=== PATIENT | female | born 1995 | race Two or more races ===

== ENCOUNTER 2023-10-20 15:46 | Emergency (ER) | payer MEDICAID, SELFPAY ==
[2023-10-20] VITALS (7 sets, daily range): BP systolic 114–123; BP diastolic 58–79; PULSE 52–68; TEMP 36.5; O2SAT 100; BMI 34.7
--- NOTE | 2023-10-20 16:04 | ED_ITS ---
Documented by User: AMINATA Berger 10/20/23 18:21 HPI HPI - General Adult General Chief complaint: Nausea/Vomiting/Diarrhea Stated complaint: Nausea/Vomiting, Blood in Stool Time Seen by Provider: 10/20/23 15:56 Source: patient and family Mode of arrival: Wheelchair Limitations: no limitations History of Present Illness HPI narrative: Patient is a 28-year-old female who presents to the emergency department for multiple episodes of emesis since early this morning As well as diffuse low abdominal pain. Patient reports 3 previous C-sections as well as previous cholecystectomy last year. She denies any complications from the gallbladder surgery. She has had no fevers or upper respiratory symptoms. She denies urinary symptoms. She apparently was waiting to be seen at [facility]'s emergency department but felt the wait was too long so her family drove her here. Related Data Previous Rx's ?Medication ?Instructions ?Recorded ondansetron 4 mg disintegrating 4 mg PO Q6H PRN nausea and 10/20/23 tablet vomiting #12 tabs pantoprazole 40 mg tablet,delayed 40 mg PO DAILY #7 tabs 10/20/23 release (Protonix) Allergies Allergy/AdvReac Type Severity Reaction Status Date / Time No Known Drug Allergies Allergy Verified 10/20/23 15:50 Opioid HPI Opioid Management Most Recent Opioid Data: Ur Phencyclidine Scrn Negative (NEGATIVE) 10/20/23 16:13 Review of Systems ROS Constitutional Denies: fever or chills Ears, nose, mouth, and throat Denies: throat pain or nasal congestion Respiratory Denies: shortness of breath Gastrointestinal Reports: abdominal pain, nausea and vomiting; Denies: diarrhea Genitourinary Denies: painful urination Musculoskeletal Denies: back pain Exam Constitutional Vital Signs, click to edit/add: Last Vital Signs Temp 97.7 F 10/20/23 15:50 Pulse 55 L 10/20/23 16:20 Resp 20 10/20/23 16:20 BP 123/58 10/20/23 16:02 Pulse Ox 100 10/20/23 15:51 O2 Del Method Room Air 10/20/23 15:50 Course Vital Signs Vital signs: Vital Signs Blood Pressure 118/79 10/20/23 15:48 Temperature 97.7 F 10/20/23 15:50 Pulse Rate 55 L 06/28/24 16:20 Respiratory Rate 20 10/20/23 16:20 Blood Pressure 123/58 10/20/23 16:02 Pulse Oximetry 100 10/20/23 15:51 Oxygen Delivery Method Room Air 10/20/23 15:50 Medical Decision Making MDM Narrative Medical decision making narrative: Patient treated with IV fluids, Pepcid, Zofran. Abdomen is soft and benign in the ER. Vital signs are within normal limits. Patient sent for CT of the abdomen and pelvis with IV contrast, her labs do not show any significant acute abnormalities. She was found to have no acute abnormality in the pelvis or abdomen on CT scanning, fatty liver noted Patient was also found to have positive cannabinoids on her urine specimen, suspect cyclic vomiting may play a role in her symptoms today. She was encouraged to be cautious of using marijuana for this reason. She will be placed on Protonix and Zofran for home. Follow-up with PCP and return to the ER if symptoms change or worsen Medical Records Medical records reviewed: Yes I reviewed the patient's medical records Lab Data Lab results reviewed: Yes I reviewed the patient's lab results Labs: Lab Results 10/20/23 10/20/23 Range/Units 16:13 16:22 WBC 10.9 (4.0-11.0) 10^3/uL RBC 4.41 (4.20-5.40) 10^6/uL Hgb 13.9 (12.0-16.0) g/dL Hct 41.5 (36.0-48.0) % MCV 94.1 (81.0-99.0) fL MCH 31.5 (26.7-34.0) pg MCHC 33.5 (29.9-35.2) g/dL RDW 12.9 (11.0-15.0) % Plt Count 247 (150-450) 10^3/uL MPV 11.2 (9.5-13.5) fL Neut % (Auto) 89.8 H (43.0-75.0) % Lymph % (Auto) 8.4 L (20.5-60.0) % [place] % (Auto) 1.2 L (1.7-12.0) % Eos % (Auto) 0.1 L (0.9-7.0) % Baso % (Auto) 0.2 (0.2-2.0) % Neut # (Auto) 9.8 H (1.4-6.5) 10^3/uL Lymph # (Auto) 0.9 L (1.2-3.8) 10^3/uL [place] # (Auto) 0.1 L (0.3-0.8) 10^3/uL Eos # (Auto) 0.0 (0.0-0.7) 10^3/uL Baso # (Auto) 0.0 (0.0-0.1) 10^3/uL Abs Immat Gran (auto) 0.03 (0.00-0.03) 10^3/uL Imm/Tot Granulo (auto) 0.3 (0.0-0.5) % Sodium 142 (136-145) mmol/L Potassium 3.4 L (3.5-5.1) mmol/L Chloride 105 (98-107) mmol/L Carbon Dioxide 21.7 (21.0-32.0) mmol/L Anion Gap 18.7 BUN 10.0 (7.0-18.0) mg/dL Creatinine 0.99 (0.55-1.02) mg/dL Est GFR ( Amer) >60 (>=60) Est GFR (Non-Af Amer) >60 (>=60) BUN/Creatinine Ratio 10.1 Glucose 145 H (74-106) mg/dL Lactate 2.7 H* (0.4-2.0) mmol/L Calcium 9.3 (8.5-10.1) mg/dL Total Bilirubin 0.4 (0.2-1.0) mg/dL AST 36 (15-37) U/L ALT 71 H (14-59) U/L Alkaline Phosphatase 63 (46-116) U/L Total Protein 8.7 H (6.4-8.2) g/dL Albumin 4.5 (3.4-5.0) g/dL Globulin 4.2 g/dL Albumin/Globulin Ratio 1.1 Lipase 25.0 (16.0-77.0) U/L Serum HCG, Qual Negative (NEGATIVE) Urine Color Yellow (YELLOW) Urine Clarity Clear (CLEAR) Urine pH >=9.0 A (5.0-9.0) Ur Specific [place] 1.010 (1.005-1.025) Urine Protein 30 A (NEG/TRACE) mg/dL Urine Glucose (UA) Negative (NEGATIVE) mg/dL Urine Ketones 15 A (NEGATIVE) mg/dL Urine Occult Blood Negative (NEGATIVE) Urine Nitrite Negative (NEGATIVE) Urine Bilirubin Negative (NEGATIVE) Urine Urobilinogen 0.2 (0.2-1.0) EU/dL Ur Leukocyte Esterase Negative (NEGATIVE) Urine RBC 0-2 (0-2) #/HPF Urine WBC 0-2 A (NONE SEEN) #/HPF Ur Squamous Epith Cells Many A (NONE/RARE) #/LPF Urine Crystals None seen (None Seen) #/HPF Urine Bacteria Moderate A (NONE SEEN) #/HPF Urine Casts None seen (NONE SEEN) #/LPF Urine Mucus Large A (NONE SEEN) Ur Culture Indicated? Yes Urine Opiates Screen Negative (NEGATIVE) Ur Buprenorphine Scrn Negative (NEGATIVE) Ur Oxycodone Screen Negative (NEGATIVE) Urine Methadone Screen Negative (NEGATIVE) Ur Barbiturates Screen Negative (NEGATIVE) U Tricyclic Antidepress Negative (NEGATIVE) Ur Phencyclidine Scrn Negative (NEGATIVE) Ur Amphetamines Screen Negative (NEGATIVE) U Methamphetamines Scrn Negative (NEGATIVE) U Benzodiazepines Scrn Negative (NEGATIVE) Urine Cocaine Screen Negative (NEGATIVE) U Cannabinoids Screen Positive A (NEGATIVE) Imaging Data CT scan - abdomen: Attestation: I have reviewed the pertinent imaging results. Radiologist's impression: ITS Impressions Abdomen/Pelvis CT 10/20/23 16:25 IMPRESSION: 1. No acute findings in the abdomen or pelvis. 2. Post cholecystectomy. 3. Mild hepatic steatosis. Electronically authenticated by: EMANUEL LOREDO Date: 10/20/2023 18:02 ECG Data Attestation: I personally reviewed and interpreted this ECG as follows: (Normal sinus rhythm at a rate of 61, no acute ST elevation or ectopy. EKG reviewed by attending physician) Discharge Plan Discharge Stand Alone Forms: Portal Instructions Chief Complaint: Nausea/Vomiting/Diarrhea Clinical Impression: Nausea and vomiting Patient Disposition: Home, Self-Care Time of Disposition Decision: 18:19 Condition: Good Prescriptions / Home Meds: New pantoprazole [Protonix] 40 mg tablet,delayed release (DR/EC) 40 mg PO DAILY Qty: 7 0RF ondansetron 4 mg tablet,disintegrating 4 mg PO Q6H PRN (Reason: nausea and vomiting) Qty: 12 0RF Print Language: Bhutanese Instructions: Acute Nausea and Vomiting (ED) Referrals: Physician,Non-Staff, [Primary Care Provider] - 1 week Discharge Date/Time: 10/20/23 18:38 Documented by User: Christian Sanchez MD 10/20/23 20:58 HPI HPI - General Adult General Chief complaint: Nausea/Vomiting/Diarrhea Stated complaint: Nausea/Vomiting, Blood in Stool Time Seen by Provider: 10/20/23 15:56 Related Data Previous Rx's ?Medication ?Instructions ?Recorded ondansetron 4 mg disintegrating 4 mg PO Q6H PRN nausea and 10/20/23 tablet vomiting #12 tabs pantoprazole 40 mg tablet,delayed 40 mg PO DAILY #7 tabs 10/20/23 release (Protonix) Allergies Allergy/AdvReac Type Severity Reaction Status Date / Time No Known Drug Allergies Allergy Verified 10/20/23 15:50 Opioid HPI Opioid Management Most Recent Opioid Data: Ur Phencyclidine Scrn Negative (NEGATIVE) 10/20/23 16:13 Exam Constitutional Vital Signs, click to edit/add: Last Vital Signs Temp 97.7 F 10/20/23 15:50 Pulse 55 L 10/20/23 16:20 Resp 20 10/20/23 16:20 BP 123/58 10/20/23 16:02 Pulse Ox 100 10/20/23 15:51 O2 Del Method Room Air 10/20/23 15:50 Course Vital Signs Vital signs: Vital Signs Blood Pressure 118/79 10/20/23 15:48 Temperature 97.7 F 10/20/23 15:50 Pulse Rate 55 L 10/20/23 16:20 Respiratory Rate 20 10/20/23 16:20 Blood Pressure 123/58 10/20/23 16:02 Pulse Oximetry 100 10/20/23 15:51 Oxygen Delivery Method Room Air 10/20/23 15:50 Medical Decision Making MDM Narrative Medical decision making narrative: Patient treated with IV fluids, Pepcid, Zofran. Abdomen is soft and benign in the ER. Vital signs are within normal limits. Patient sent for CT of the abdomen and pelvis with IV contrast, her labs do not show any significant acute abnormalities. She was found to have no acute abnormality in the pelvis or abdomen on CT scanning, fatty liver noted Patient was also found to have positive cannabinoids on her urine specimen, suspect cyclic vomiting may play a role in her symptoms today. She was encouraged to be cautious of using marijuana for this reason. She will be pl aced on Protonix and Zofran for home. Follow-up with PCP and return to the ER if symptoms change or worsen I, Dr Sanchez, have reviewed the above progress note and course of action in the ER; agree with the above. I have personally seen and evaluated this patient, gone over history and physical, and discussed disposition and treatment plan with the patient. Reexamination patient's abdomen is soft, minimal diffuse tenderness, no guarding, rebound, rigidity. No peritoneal signs. No surgical abdomen. Lab Data Labs: Lab Results 10/20/23 10/20/23 Range/Units 16:13 16:22 WBC 10.9 (4.0-11.0) 10^3/uL RBC 4.41 (4.20-5.40) 10^6/uL Hgb 13.9 (12.0-16.0) g/dL Hct 41.5 (36.0-48.0) % MCV 94.1 (81.0-99.0) fL MCH 31.5 (26.7-34.0) pg MCHC 33.5 (29.9-35.2) g/dL RDW 12.9 (11.0-15.0) % Plt Count 247 (150-450) 10^3/uL MPV 11.2 (9.5-13.5) fL Neut % (Auto) 89.8 H (43.0-75.0) % Lymph % (Auto) 8.4 L (20.5-60.0) % [place] % (Auto) 1.2 L (1.7-12.0) % Eos % (Auto) 0.1 L (0.9-7.0) % Baso % (Auto) 0.2 (0.2-2.0) % Neut # (Auto) 9.8 H (1.4-6.5) 10^3/uL Lymph # (Auto) 0.9 L (1.2-3.8) 10^3/uL [place] # (Auto) 0.1 L (0.3-0.8) 10^3/uL Eos # (Auto) 0.0 (0.0-0.7) 10^3/uL Baso # (Auto) 0.0 (0.0-0.1) 10^3/uL Abs Immat Gran (auto) 0.03 (0.00-0.03) 10^3/uL Imm/Tot Granulo (auto) 0.3 (0.0-0.5) % Sodium 142 (136-145) mmol/L Potassium 3.4 L (3.5-5.1) mmol/L Chloride 105 (98-107) mmol/L Carbon Dioxide 21.7 (21.0-32.0) mmol/L Anion Gap 18.7 BUN 10.0 (7.0-18.0) mg/dL Creatinine 0.99 (0.55-1.02) mg/dL Est GFR ( Amer) >60 (>=60) Est GFR (Non-Af Amer) >60 (>=60) BUN/Creatinine Ratio 10.1 Glucose 145 H (74-106) mg/dL Lactate 2.7 H* (0.4-2.0) mmol/L Calcium 9.3 (8.5-10.1) mg/dL Total Bilirubin 0.4 (0.2-1.0) mg/dL AST 36 (15-37) U/L ALT 71 H (14-59) U/L Alkaline Phosphatase 63 (46-116) U/L Total Protein 8.7 H (6.4-8.2) g/dL Albumin 4.5 (3.4-5.0) g/dL Globulin 4.2 g/dL Albumin/Globulin Ratio 1.1 Lipase 25.0 (16.0-77.0) U/L Serum HCG, Qual Negative (NEGATIVE) Urine Color Yellow (YELLOW) Urine Clarity Clear (CLEAR) Urine pH >=9.0 A (5.0-9.0) Ur Specific [place] 1.010 (1.005-1.025) Urine Protein 30 A (NEG/TRACE) mg/dL Urine Glucose (UA) Negative (NEGATIVE) mg/dL Urine Ketones 15 A (NEGATIVE) mg/dL Urine Occult Blood Negative (NEGATIVE) Urine Nitrite Negative (NEGATIVE) Urine Bilirubin Negative (NEGATIVE) Urine Urobilinogen 0.2 (0.2-1.0) EU/dL Ur Leukocyte Esterase Negative (NEGATIVE) Urine RBC 0-2 (0-2) #/HPF Urine WBC 0-2 A (NONE SEEN) #/HPF Ur Squamous Epith Cells Many A (NONE/RARE) #/LPF Urine Crystals None seen (None Seen) #/HPF Urine Bacteria Moderate A (NONE SEEN) #/HPF Urine Casts None seen (NONE SEEN) #/LPF Urine Mucus Large A (NONE SEEN) Ur Culture Indicated? Yes Urine Opiates Screen Negative (NEGATIVE) Ur Buprenorphine Scrn Negative (NEGATIVE) Ur Oxycodone Screen Negative (NEGATIVE) Urine Methadone Screen Negative (NEGATIVE) Ur Barbiturates Screen Negative (NEGATIVE) U Tricyclic Antidepress Negative (NEGATIVE) Ur Phencyclidine Scrn Negative (NEGATIVE) Ur Amphetamines Screen Negative (NEGATIVE) U Methamphetamines Scrn Negative (NEGATIVE) U Benzodiazepines Scrn Negative (NEGATIVE) Urine Cocaine Screen Negative (NEGATIVE) U Cannabinoids Screen Positive A (NEGATIVE) Imaging Data CT scan - abdomen: Radiologist's impression: ITS Impressions Abdomen/Pelvis CT 10/20/23 16:25 IMPRESSION: 1. No acute findings in the abdomen or pelvis. 2. Post cholecystectomy. 3. Mild hepatic steatosis. Electronically authenticated by: EMANUEL LOREDO Date: 10/20/2023 18:02 Discharge Plan Discharge Stand Alone Forms: Portal Instructions Chief Complaint: Nausea/Vomiting/Diarrhea Clinical Impression: Nausea and vomiting Patient Disposition: Home, Self-Care Time of Disposition Decision: 18:19 Condition: Good Prescriptions / Home Meds: New pantoprazole [Protonix] 40 mg tablet,delayed release (DR/EC) 40 mg PO DAILY Qty: 7 0RF ondansetron 4 mg tablet,disintegrating 4 mg PO Q6H PRN (Reason: nausea and vomiting) Qty: 12 0RF Print Language: Bhutanese Instructions: Acute Nausea and Vomiting (ED) Referrals: Physician,Non-Staff, MD [Primary Care Provider] - 1 week Discharge Date/Time: 10/20/23 18:38
[2023-10-20] MEDS: 0.9 % SODIUM CHLORIDE 1,000 ML 999 ML IV (16:17)
[2023-10-20] MEDS: ONDANSETRON PF 4 MG/2 ML VIAL IV (16:17)
[2023-10-20] MEDS: FAMOTIDINE/PF 20 MG/2 ML VIAL IV (16:17)
--- NOTE | 2023-10-20 16:25 | CT_ITS ---
The [address] [address] Patient Name: DELANEY CHACON MRN: [id number] date: 1995 Sex: F Assigned Patient Location: ER Current Patient Location: Accession/Order Number: [id number] Exam Date: 10/20/2023 16:56 Report Date: 10/20/2023 18:02 At the request of: REJI GHOTRA Procedure: CT abdomen pelvis w con EXAM: CT abdomen pelvis w con , 10/20/2023 HISTORY: Abdominal pain, vomiting COMPARISON: None. TECHNIQUE: Contrast CT scan of the abdomen and pelvis was performed using 100 mL of Omnipaque 300 intravenous iodine contrast. Coronal and sagittal reconstructions were performed. Dose reduction techniques were achieved by using automated exposure control and/or adjustment of mA and/or kV according to patient size and/or use of iterative reconstruction technique. FINDINGS: Mild hepatic steatosis without focal lesion. The spleen, pancreas and both adrenal glands are unremarkable. Patent portal venous system. Postcholecystectomy. No biliary dilatation. Unremarkable aorta and IVC. No focal lesion in the kidneys. Excretion of contrast seen in bilateral urinary collecting system with partial opacification of the urinary bladder. No hydronephrosis or hydroureter. Uterus and adnexa are unremarkable. No bowel loop dilatation or bowel wall thickening. Unremarkable appendix. Small umbilical hernia containing fatty tissue. No enlarged lymph node in the abdomen, retroperitoneum or the pelvis. Unremarkable osseous structures. Scans lung bases are clear. CT/CT abdomen pelvis w con IMPRESSION: 1. No acute findings in the abdomen or pelvis. 2. Post cholecystectomy. 3. Mild hepatic steatosis. Electronically authenticated by: EMANUEL LOREDO Date: 10/20/2023 18:02
[2023-10-20 16:28] LABS: Basophils Percent Auto 0.2 % (0.2-2.0); Eosinophils Percent Auto 0.1 % (0.9-7.0); Hematocrit 41.5 % (36.0-48.0); Hemoglobin 13.9 g/dL (12.0-16.0); Immature Granulocytes Abs Auto 0.03 10^3/uL (0.00-0.03); Immature Granulocytes Pct Auto 0.3 % (0.0-0.5); Lymphocytes Absolute Auto 0.9 10^3/uL (1.2-3.8); Lymphocytes Percent Auto 8.4 % (20.5-60.0); Mean Corpuscular HGB Conc 33.5 g/dL (29.9-35.2); Mean Corpuscular Hemoglobin 31.5 pg (26.7-34.0); Mean Corpuscular Volume 94.1 fL (81.0-99.0); Mean Platelet Volume 11.2 fL (9.5-13.5); Monocytes Absolute Auto 0.1 10^3/uL (0.3-0.8); Monocytes Percent Auto 1.2 % (1.7-12.0); Neutrophils Absolute Auto 9.8 10^3/uL (1.4-6.5); Neutrophils Percent Auto 89.8 % (43.0-75.0); Platelet Count 247 10^3/uL (150-450); Red Blood Count 4.41 10^6/uL (4.20-5.40); Red Cell Distribution Width 12.9 % (11.0-15.0); White Blood Count 10.9 10^3/uL (4.0-11.0)
[2023-10-20 16:31] LABS: Bilirubin Urine NEGATIVE (NEGATIVE); Blood Urine NEGATIVE (NEGATIVE); Clarity Urine CLEAR (CLEAR); Color Urine YELLOW (YELLOW); Glucose Urine UA NEGATIVE (NEGATIVE); Ketones Urine 15 mg/dL (NEGATIVE); Leukocyte Esterase Urine NEGATIVE (NEGATIVE); Nitrite Urine NEGATIVE (NEGATIVE); Protein Urine 30 mg/dL (NEG/TRACE); Urobilinogen Urine 0.2 EU/dL (0.2-1.0); pH Urine >=9.0 (5.0-9.0)
[2023-10-20 16:32] LABS: Urine Microscopic Indicated YES
[2023-10-20 16:40] LABS: Amphetamine Screen Urine NEGATIVE (NEGATIVE); Barbiturates Screen Urine NEGATIVE (NEGATIVE); Benzodiazepines Screen Urine NEGATIVE (NEGATIVE); Buprenorphine Screen Urine NEGATIVE (NEGATIVE); Cannabinoid Screen Urine POSITIVE (NEGATIVE); Cocaine Screen Urine NEGATIVE (NEGATIVE); Methadone Screen Urine NEGATIVE (NEGATIVE); Methamphetamines Screen Urine NEGATIVE (NEGATIVE); Opiate Screen Urine NEGATIVE (NEGATIVE); Oxycodone Screen Urine NEGATIVE (NEGATIVE); Phencyclidine Screen Urine NEGATIVE (NEGATIVE); Tricyclic Antidepressant Urine NEGATIVE (NEGATIVE)
[2023-10-20 16:42] LABS: WBC Urine 0-2 #/HPF (NONE SEEN)
[2023-10-20 16:43] LABS: Bacteria Urine MODERATE #/HPF (NONE SEEN); Cast Seen? NONE SEEN #/LPF (NONE SEEN); Crystals Seen? None Seen #/HPF (None Seen); Mucus Urine LARGE (NONE SEEN); RBC Urine 0-2 #/HPF (0-2); Squamous Epithelial Cell Urine MANY #/LPF (NONE/RARE); Urine Culture Indicated YES
[2023-10-20 16:43] LABS: Alanine Aminotransferase 71 U/L (14-59); Albumin Globulin Ratio 1.1; Albumin Level 4.5 g/dL (3.4-5.0); Alkaline Phosphatase 63 U/L (46-116); Anion Gap 18.7; Aspartate Amino Transferase 36 U/L (15-37); BUN Creatinine Ratio 10.1; Bilirubin Total 0.4 mg/dL (0.2-1.0); Calcium 9.3 mg/dL (8.5-10.1); Carbon Dioxide 21.7 mmol/L (21.0-32.0); Chloride 105 mmol/L (98-107); Estimated GFR (African America >60 (>=60); Estimated GFR (Non-African Ame >60 (>=60); Globulin 4.2 g/dL; Glucose 145 mg/dL (74-106); Potassium 3.4 mmol/L (3.5-5.1); Sodium 142 mmol/L (136-145); Total Protein 8.7 g/dL (6.4-8.2)
[2023-10-20 16:44] LABS: HCG Qualitative NEGATIVE (NEGATIVE); Internal Control Within Normal Limits
[2023-10-20 16:51] LABS: Lactate/Lactic Acid 2.7 mmol/L (0.4-2.0)
[2023-10-20] MEDS: POTASSIUM BICARBONATE/CIT 25 MEQ TABLET EFF 50 MEQ PO (18:35)
== END 2023-10-20 18:38 | disposition home or self-care (01) ==
PROVIDERS: Physician Assistant; Emergency Provider Emergency Medicine
DX: R11.2 Nausea with vomiting, unspecified (principal); Z90.49 Acquired absence of other specified parts of digestive tract
CPT/HCPCS: 36415; 74177; 80053; 80307; 81001; 83605; 83690; 84703; 85025; 87086; 87150; 87186; 96361; 96374; 96375; 99285; J2405; Q9967